=== PATIENT | female | born 1980 | race Caucasian/White ===

== ENCOUNTER 2017-06-21 02:22 | Observation (INO) | payer BC ==
[2017-06-21] VITALS (8 sets, daily range): BP systolic 116–156; BP diastolic 66–85; PULSE 62–73; RESP 16–20; TEMP 96.3–97.7; O2SAT 96–98
[~2017-06-21] VITALS: Ht 167.6 cm; Wt 96.7 kg
[~2017-06-21 02:22] MED LIST: AMOX875T PO; FLUT1SPR9; LOSA100T PO; NAPR500 PO
[2017-06-21] MEDS ORDERED: SODIUM CHLOR 0.9% 1000 ML INJ 1,000 ML IV ONE (02:36)
[2017-06-21] MEDS ORDERED: ONDANSETRON HCL 4 MG/2 ML VIAL IV PUSH ONE (02:45)
[2017-06-21] MEDS ORDERED: KETOROLAC TROMETHAMINE 30 MG/ML (IVP) VIAL IV PUSH ONE (02:45)
[2017-06-21] MEDS ORDERED: SODIUM CHLORIDE 0.9% FLUSH 10 ML FLUSH IVF PRN (02:45)
[2017-06-21] MEDS ORDERED: MORPHINE SULFATE 4 MG/ML INJ IV PUSH ONE ×2 (02:45→04:00)
[2017-06-21] MEDS ORDERED: LOSA50TA PO (02:47)
[2017-06-21] MEDS ORDERED: BYST5TAB2 PO (02:47)
[2017-06-21 03:11] LABS: BILIRUBIN, URINE NEG (NEG); BLOOD, URINE NEG (NEG); GLUCOSE,URINE NEG (NEG); KETONE, URINE NEG (NEG); NITRITE,URINE NEG (NEG); PH, URINE 5.5 (5.0-8.5); URINE COLOR YELLOW (YELLW/STRAW); URINE LEUKOCYTE ESTERASE NEG (NEG)
--- NOTE | 2017-06-21 03:13 | PD ---
HPI Chief Complaint: Flank/Kidney Pain Time Seen by Provider: 02:36 Travel History International Travel<30 days: No Contact w/Intl Traveler<30days: No Traveled to known affect area: No History of Present Illness HPI The patient is a 36-year-old female that complains of sharp left flank pain, 9/ 10 for the last 24 hours. The pain was of sudden onset. She denies any dysuria , frequency or urgency. She denies any fever. She does not have a history of kidney stones. Her only medical history is that of hypertension and she is on losartan and Bystolic for this. She denies any nausea, vomiting or diarrhea. PFSH Past Medical History Heart Rhythm Problems: Yes (HX CHEST WALL PAIN Q 2 MONTHS) Cardiovascular Problems: Yes (htn) Diminished Hearing: No Hypertension: Yes Musculoskeletal: Yes (CHEST WALL PAIN, HX FX OF RT WRIST) Respiratory: Yes (asthma) Tetanus Vaccination: Unknown Influenza Vaccination: Yes ?: Not LMP: 05-31-17 Past Surgical History Surgical History: No Previous Surgery Social History Alcohol Use: Yes (ONCE WEEKLY) Tobacco Use: No Substance Use: No Allergies-Medications (Allergen,Severity, Reaction): Coded Allergies: No Known Allergies (Verified Adverse Reaction, Unknown, 06/21/17) Reported Meds & Prescriptions Reported Meds & Active Scripts Active Reported Losartan (Losartan Potassium) 50 Mg Tab 50 Mg PO DAILY Bystolic (Nebivolol) 5 Mg Tab 5 Mg PO DAILY Review of Systems Except as stated in HPI: all other systems reviewed are Neg Physical Exam Narrative GENERAL: The patient is alert, oriented 3 in moderate to severe distress with her left flank pain. Her vital signs show normal. SKIN: Focused skin assessment warm/dry. HEAD: Atraumatic. Normocephalic. EYES: Pupils equal and round. No scleral icterus. No injection or drainage. ENT: No nasal bleeding or discharge. Mucous membranes pink and moist. NECK: Trachea midline. No JVD. CARDIOVASCULAR: Regular rate and rhythm. No murmur appreciated. RESPIRATORY: No accessory muscle use. Clear to auscultation. Breath sounds equal bilaterally. GASTROINTESTINAL: Abdomen soft, slight tenderness to direct palpation, nondistended. Hepatic and splenic margins not palpable. No guarding or rebound is present. MUSCULOSKELETAL: No obvious deformities. No clubbing. No cyanosis. No edema. NEUROLOGICAL: Awake and alert. No obvious cranial nerve deficits. Motor grossly within normal limits. Normal speech. PSYCHIATRIC: Appropriate mood and affect; insight and judgment normal. Data Data Last Documented VS Vital Signs Date Time Temp Pulse Resp B/P (MAP) Pulse Ox O2 Delivery O2 Flow Rate FiO2 06/21/17 03:17 16 06/21/17 02:24 97.5 73 130/79 (96) 97 Orders Orders Urinalysis - C+S If Indicated (06/21/17 02:32) Ed Urine Pregnancytest Poc (06/21/17 02:32) Complete Blood Count With Diff (06/21/17 02:36) Basic Metabolic Panel (Bmp) (06/21/17 02:36) Ecg Monitoring (06/21/17 02:36) Iv Access Insert/Monitor (06/21/17 02:36) Ketorolac Inj (Toradol Inj) (06/21/17 02:45) Morphine Inj (Morphine Inj) (06/21/17 02:45) Ondansetron Inj (Zofran Inj) (06/21/17 02:45) Sodium Chloride 0.9% Flush (Ns Flush) (06/21/17 02:45) Sodium Chlor 0.9% 1000 Ml Inj (Ns 1000 M (06/21/17 02:36) Sodium Chlor 0.9% 1000 Ml Inj (Ns 1000 M (06/21/17 03:30) Ct Abd/Pel W/O Iv Contrast (06/21/17 03:57) Morphine Inj (Morphine Inj) (06/21/17 04:00) Ondansetron Inj (Zofran Inj) (06/21/17 04:00) Metronidazole 500 Mg Inj (Flagyl 500 Mg (06/21/17 05:00) Ciprofloxacin 400 Mg Premix (Cipro 400 M (06/21/17 05:00) Labs Laboratory Tests Test 06/21/17 03:02 06/21/17 03:03 White Blood Count 8.4 TH/MM3 Red Blood Count 4.63 MIL/MM3 Hemoglobin 13.0 GM/DL Hematocrit 39.1 % Mean Corpuscular Volume 84.5 FL Mean Corpuscular Hemoglobin 28.2 PG Mean Corpuscular Hemoglobin Concent 33.3 % Red Cell Distribution Width 12.6 % Platelet Count 280 TH/MM3 Mean Platelet Volume 7.9 FL Neutrophils (%) (Auto) 66.3 % Lymphocytes (%) (Auto) 20.0 % Monocytes (%) (Auto) 5.0 % Eosinophils (%) (Auto) 4.9 % Basophils (%) (Auto) 3.8 % Neutrophils # (Auto) 5.6 TH/MM3 Lymphocytes # (Auto) 1.7 TH/MM3 Monocytes # (Auto) 0.4 TH/MM3 Eosinophils # (Auto) 0.4 TH/MM3 Basophils # (Auto) 0.3 TH/MM3 CBC Comment DIFF FINAL Differential Comment Blood Urea Nitrogen 15 MG/DL Creatinine 0.83 MG/DL Random Glucose 112 MG/DL Calcium Level 8.7 MG/DL Sodium Level 136 MEQ/L Potassium Level 4.1 MEQ/L Chloride Level 103 MEQ/L Carbon Dioxide Level 27.0 MEQ/L Anion Gap 6 MEQ/L Estimat Glomerular Filtration Rate 77 ML/MIN Urine Color YELLOW Urine Turbidity CLEAR Urine pH 5.5 Urine Specific [place] LESS/EQUAL 1.005 Urine Protein NEG mg/dL Urine Glucose (UA) NEG mg/dL Urine Ketones NEG mg/dL Urine Occult Blood NEG Urine Nitrite NEG Urine Bilirubin NEG Urine Urobilinogen 0.2 MG/DL Urine Leukocyte Esterase NEG Urine RBC 0-2 /hpf Urine WBC 0-2 /hpf Urine Squamous Epithelial Cells > 8 /hpf Urine Bacteria OCC /hpf Microscopic Urinalysis Comment CULT NOT INDICATED MDM Medical Decision Making Medical Screen Exam Complete: Yes Emergency Medical Condition: Yes Medical Record Reviewed: Yes Interpretation(s) The CT abdomen/pelvis without IV contrast shows scattered diverticula throughout the colon, most severe in the descending and sigmoid portions. In addition, pericolic stranding in the mid descending colon is characteristic of a non-complicated diverticulitis. The radiologist felt this likely explains the patient's current clinical symptoms. Incidentally noted is diffuse fatty infiltration of the liver. The urinalysis is normal and cultures not indicated. The CBC is normal. The basic metabolic profile is normal. Differential Diagnosis Left ureteral stone, diverticulitis, pyelonephritis, colitis, electrolyte disorder, dehydration, intractable pain Narrative Course The patient has required a total of 8 mg of morphine IV and she still has a pain of 7/10. She appears to have diverticulitis without abscess formation or perforation. She will be given Flagyl and Cipro here. She will also likely require IV pain medicines here, home p.o. medicines for pain are likely to fail. Diagnosis Primary Impression: Diverticulitis Additional Impression: Intractable abdominal pain Admitting Information Admitting Physician Requests: Admit David Che MD Jun 21, 2017 03:13
[2017-06-21 03:14] LABS: AUTOMATED NEUTROPHIL # 5.6 TH/MM3 (1.8-7.7); BASOPHIL # 0.3 TH/MM3 (0-0.2); BASOPHIL % 3.8 % (0.0-2.0); EOSINOPHIL # 0.4 TH/MM3 (0-0.4); EOSINOPHIL % 4.9 % (0.0-4.0); HEMATOCRIT 39.1 % (35.0-46.0); LYMPHOCYTE # 1.7 TH/MM3 (1.0-4.8); MEAN CELL VOLUME 84.5 FL (80.0-100.0); MEAN CORPUSCULAR HEMOGLOBIN 28.2 PG (27.0-34.0); MEAN CORPUSCULAR HGB CONC 33.3 % (32.0-36.0); MEAN PLATELET VOLUME 7.9 FL (7.0-11.0); MONOCYTE # 0.4 TH/MM3 (0-0.9); NEUT % 66.3 % (16.0-70.0); PLATELET COUNT 280 TH/MM3 (150-450); RED BLOOD COUNT 4.63 MIL/MM3 (4.00-5.30); RED CELL DISTRIBUTION WIDTH 12.6 % (11.6-17.2); WHITE BLOOD COUNT 8.4 TH/MM3 (4.0-11.0)
[2017-06-21 03:17] LABS: BACTERIA, URINE OCC /hpf; RBC, URINE 0-2 /hpf (0-3); SQUAMOUS EPITHELIAL CELL URINE > 8 /hpf (0-5); WBC, URINE 0-2 /hpf (0-5)
[2017-06-21] MEDS: SODIUM CHLOR 0.9% 1000 ML INJ 1,000 ML IV SCH ×5 (03:19→15:04)
[2017-06-21 03:23] LABS: CALCIUM 8.7 MG/DL (8.5-10.1)
[2017-06-21 03:27] LABS: CREATININE 0.83 MG/DL (0.50-1.00)
[2017-06-21] MEDS ORDERED: ONDANSETRON HCL 4 MG/2 ML VIAL IV ONE (04:00)
--- NOTE | 2017-06-21 04:51 | RADRPT ---
EXAM DATE/TIME: 06/21/2017 04:19 [place] COMPARISON: No previous studies available for comparison. INDICATIONS : Left flank pain. ORAL CONTRAST: No oral contrast ingested. RADIATION DOSE: 19.26 CTDIvol (mGy) MEDICAL HISTORY : Hypertension. SURGICAL HISTORY : None. ENCOUNTER: Initial ACUITY: 1 day PAIN SCALE: 8/10 LOCATION: Left flank TECHNIQUE: Volumetric scanning of the abdomen and pelvis was performed. Using automated exposure control and ad justment of the mA and/or kV according to patient size, radiation dose was kept as low as reasonably achievable to obtain optimal diagnostic quality images. DICOM format image data is available electro nically for review and comparison. FINDINGS: LOWER LUNGS: The visualized lower lungs are clear. LIVER: Homogeneous, but decreased density without lesion. There is no dilation of the biliary tree. No giovanny cified gallstones. SPLEEN: Normal size without lesion. PANCREAS: Within normal limits. KIDNEYS: Normal in size and shape. There is no mass, stone, or hydronephrosis. ADRENAL GLANDS: Within normal limits. VASCULAR: There is no aortic aneurysm. BOWEL/MESENTERY: Scattered diverticula throughout the colon, most prominent in the descending and sigmoid portions. Pe ricolonic stranding in the mid descending characteristic of a uncomplicated diverticulitis. ABDOMINAL WALL: Within normal limits. RETROPERITONEUM: There is no lymphadenopathy. BLADDER: No wall thickening or mass. REPRODUCTIVE: Within normal limits. INGUINAL: There is no lymphadenopathy or hernia. MUSCULOSKELETAL: Within normal limits for patient age. CONCLUSION: 1. Scattered diverticula throughout the colon, most severe in the descending and sigmoid portions. 2. In addition, pericolonic stranding in the mid descending is characteristic of a non-complicated di verticulitis. This likely explains current clinical symptoms. 3. Diffuse hepatic fatty infiltration. Taras Dowd MD on June 21, 2017 at 4:46 Board Certified Radiologist. This report was verified electronically.
[2017-06-21] MEDS ORDERED: metroNIDAZOLE 500 MG INJ 100 ML IV ONE (05:00)
[2017-06-21] MEDS ORDERED: CIPROFLOXACIN 400 MG PREMIX 200 ML IV ONE (05:00)
[2017-06-21] MEDS ORDERED: SODIUM CHLORIDE 0.9% FLUSH 10 ML FLUSH IV FLUSH PRN (05:15)
[2017-06-21] MEDS ORDERED: LACTULOSE SYRUP 20 GM/30 ML CUP PO PRN (05:15)
[2017-06-21] MEDS ORDERED: MAGNESIUM HYDROXIDE SUSP 30 ML CUP PO PRN (05:15)
[2017-06-21] MEDS ORDERED: SENNOSIDES 8.6 MG TAB PO PRN (05:15)
[2017-06-21] MEDS ORDERED: ONDANSETRON HCL 4 MG/2 ML VIAL IVP PRN (05:15)
[2017-06-21] MEDS ORDERED: ACETAMINOPHEN 325 MG TAB PO PRN (05:15)
[2017-06-21] MEDS ORDERED: MORPHINE SULFATE 2 MG/ML SYRINGE IV PUSH PRN (05:15)
[2017-06-21] MEDS ORDERED: BISACODYL 10 MG SUPP RECTAL PRN (05:15)
[2017-06-21] MEDS: ACETAMINOPHEN/HYDROcodone 325 MG/5 MG TAB PO PRN ×3 (06:49→18:51)
[2017-06-21] MEDS ORDERED: SODIUM CHLORIDE 0.9% FLUSH 10 ML FLUSH IV FLUSH SCH (09:00)
[2017-06-21] MEDS ORDERED: DOCUSATE SODIUM 50 MG/SENNA 8.6 MG TAB PO SCH (09:00)
[2017-06-21] MEDS ORDERED: CIPR-9 PO (10:49)
[2017-06-21] MEDS ORDERED: METR-1 PO (10:49)
[2017-06-21] MEDS ORDERED: HYDR-3516 PO (10:49)
--- NOTE | 2017-06-21 10:50 | HHI.DCPOC ---
Discharge Care Plan Diagnosis: (1) Intractable abdominal pain (2) Diverticulitis Your Health Problems Are: Difficulty with ADL Exercise Tolerance Goals to Promote Your Health * To prevent worsening of your condition and complications * To maintain your health at the optimal level Directions to Meet Your Goals Take your medications as prescribed Follow your dietary instruction Follow activity as directed Keep your appointments as scheduled Take your immunizations and boosters as scheduled If your symptoms worsen call your PCP, if no PCP go to Urgent Care Center or Emergency Room Smoking is Dangerous to Your Health. Avoid second hand smoke Call the 24-hour hour crisis hotline for domestic abuse at Kaleb Rey MD Jun 21, 2017 10:49
--- NOTE | 2017-06-21 10:58 | HHI.HP ---
[facility] Service [facility] Primary Care Physician Jenny New M.D. Admission Diagnosis Diverticulitis, intractable pain Diagnoses: Chief Complaint: Left flank pain Travel History International Travel<30 Days: No Contact w/Intl Traveler <30 Da: No Traveled to Known Affected Are: No History of Present Illness This is a 36-year-old female who presented to the emergency department complaining of acute severe sharp left lack pain radiating to her left back. No precipitating or alleviating factors. No UTI symptoms, fever, chills, nausea , vomiting, constipation and diarrhea. CT showed pericolic stranding in the mid descending colon. Denies constipation and recent ingestion of seeds, nuts and corn. She received IV IV Flagyl and ciprofloxacin. She was recommended to be hospitalized because of intractable pain after receiving IV Toradol and morphine sulfate. At this time, pain is improved. She has given Lortab. All other systems reviewed negative Review of Systems Except as stated in HPI: all other systems reviewed are Neg Past Family Social History Past Medical History Hypertension and chronic chest wall pain. LMP May 31, 2017 Past Surgical History Fracture of the right wrist nonsurgical management Reported Medications Last Impressions Abdomen/Pelvis CT 06/21/17 0357 Signed Impressions: Service Date/Time: Wednesday, June 21, 2017 04:19 - CONCLUSION: 1. Scattered diverticula throughout the colon, most severe in the descending and sigmoid portions. 2. In addition, pericolonic stranding in the mid descending is characteristic of a non-complicated diverticulitis. This likely explains current clinical symptoms. 3. Diffuse hepatic fatty infiltration. Taras Dowd MD Allergies: Coded Allergies: No Known Allergies (Verified Allergy, Unknown, 06/21/17) Family History Colon cancer, coronary artery disease and diabetes mellitus Social History Occasional alcohol use. Does not smoke. Physical Exam Vital Signs Vital Signs Date Time Temp Pulse Resp B/P (MAP) Pulse Ox O2 Delivery O2 Flow Rate FiO2 06/21/17 07:50 96.3 62 20 121/76 (91) 97 06/21/17 06:31 96.4 66 20 130/83 (99) 97 06/21/17 06:14 82 18 156/74 (101) 99 06/21/17 05:07 70 16 145/85 (105) 98 Room Air 06/21/17 03:17 16 06/21/17 02:24 97.5 73 18 130/79 (96) 97 Physical Exam GENERAL: This is an obese, well-developed patient, in no apparent distress. SKIN: No rashes, ecchymoses or lesions. Cool and dry. HEAD: Atraumatic. Normocephalic. No temporal or scalp tenderness. EYES: Pupils equal round and reactive. Extraocular motions intact. No scleral icterus. No injection or drainage. ENT: Nose without bleeding, purulent drainage or septal hematoma. Throat without erythema, tonsillar hypertrophy or exudate. Uvula midline. Airway patent. NECK: Trachea midline. No JVD or lymphadenopathy. Supple, nontender, no meningeal signs. CARDIOVASCULAR: Regular rate and rhythm without murmurs, gallops, or rubs. RESPIRATORY: Clear to auscultation. Breath sounds equal bilaterally. No wheezes , rales, or rhonchi. GASTROINTESTINAL: Abdomen soft, non-tender, nondistended. Left CVA tenderness. No guarding. MUSCULOSKELETAL: Extremities without clubbing, cyanosis, or edema. No joint tenderness, effusion, or edema noted. No calf tenderness. Negative Homans sign bilaterally. NEUROLOGICAL: Awake and alert. Cranial nerves II through XII intact. Motor and sensory grossly within normal limits. Five out of 5 muscle strength in all muscle groups. Normal speech. Laboratory Laboratory Tests Test 06/21/17 03:02 06/21/17 03:03 White Blood Count 8.4 Red Blood Count 4.63 Hemoglobin 13.0 Hematocrit 39.1 Mean Corpuscular Volume 84.5 Mean Corpuscular Hemoglobin 28.2 Mean Corpuscular Hemoglobin Concent 33.3 Red Cell Distribution Width 12.6 Platelet Count 280 Mean Platelet Volume 7.9 Neutrophils (%) (Auto) 66.3 Lymphocytes (%) (Auto) 20.0 Monocytes (%) (Auto) 5.0 Eosinophils (%) (Auto) 4.9 Basophils (%) (Auto) 3.8 Neutrophils # (Auto) 5.6 Lymphocytes # (Auto) 1.7 Monocytes # (Auto) 0.4 Eosinophils # (Auto) 0.4 Basophils # (Auto) 0.3 CBC Comment DIFF FINAL Differential Comment Blood Urea Nitrogen 15 Creatinine 0.83 Random Glucose 112 Calcium Level 8.7 Sodium Level 136 Potassium Level 4.1 Chloride Level 103 Carbon Dioxide Level 27.0 Anion Gap 6 Estimat Glomerular Filtration Rate 77 Urine Color YELLOW Urine Turbidity CLEAR Urine pH 5.5 Urine Specific [place] LESS/EQUAL 1.005 Urine Protein NEG Urine Glucose (UA) NEG Urine Ketones NEG Urine Occult Blood NEG Urine Nitrite NEG Urine Bilirubin NEG Urine Urobilinogen 0.2 Urine Leukocyte Esterase NEG Urine RBC 0-2 Urine WBC 0-2 Urine Squamous Epithelial Cells > 8 Urine Bacteria OCC Microscopic Urinalysis Comment CULT NOT INDICATED Result Diagram: 06/21/1730106/21/17301 Caprini VTE Risk Assessment Caprini VTE Risk Assessment: No/Low Risk (score <= 1) Caprini Risk Assessment Model Point Value = 1 Point Value = 2 Point Value = 3 Point Value = 5 Age 41-60 Minor surgery BMI > 25 kg/m2 Swollen legs Varicose veins or History of unexplained or recurrent spontaneous Oral contraceptives or hormone replacement Sepsis (< 1 month) Serious lung disease, including pneumonia (< 1 month) Abnormal pulmonary function Acute myocardial infarction Congestive heart failure (< 1 month) History of inflammatory bowel disease Medical patient at bed rest Age 61-74 Arthroscopic surgery Major open surgery (> 45 min) Laparoscopic surgery (> 45 min) Malignancy Confined to bed (> 72 hours) Immobilizing plaster cast Central venous access Age >= 75 History of VTE Family history of VTE Factor V Leiden Prothrombin [id number] Lupus anticoagulant Anticardiolipin antibodies Elevated serum homocysteine Heparin-induced thrombocytopenia Other congenital or acquired thrombophilia Stroke (< 1 month) Elective arthroplasty Hip, pelvis, or leg fracture Acute spinal cord injury (< 1 month) Prophylaxis Regimen Total Risk Factor Score Risk Level Prophylaxis Regimen 0-1 Low Early ambulation 2 Moderate Order ONE of the following: *Sequential Compression Device (SCD) *Heparin 5000 units SQ BID 3-4 Higher Order ONE of the following medications: *Heparin 5000 units SQ TID *Enoxaparin/Lovenox 40 mg SQ daily (WT < 150 kg, CrCl > 30 mL/min) *Enoxaparin/Lovenox 30 mg SQ daily (WT < 150 kg, CrCl > 10-29 mL/min) *Enoxaparin/Lovenox 30 mg SQ BID (WT < 150 kg, CrCl > 30 mL/min) AND/OR *Sequential Compression Device (SCD) 5 or more Highest Order ONE of the following medications: *Heparin 5000 units SQ TID (Preferred with Epidurals) *Enoxaparin/Lovenox 40 mg SQ daily (WT < 150 kg, CrCl > 30 mL/min) *Enoxaparin/Lovenox 30 mg SQ daily (WT < 150 kg, CrCl > 10-29 mL/min) *Enoxaparin/Lovenox 30 mg SQ BID (WT < 150 kg, CrCl > 30 mL/min) AND *Sequential Compression Device (SCD) Assessment and Plan Problem List: (1) Intractable abdominal pain ICD Code: R10.9 - Unspecified abdominal pain Status: Acute (2) Diverticulitis ICD Code: K57.92 - Diverticulitis of intestine, part unspecified, without perforation or abscess without bleeding Status: Acute Assessment and Plan This is a 36-year-old female who presented to the emergency department complaining of acute severe sharp left lack pain radiating to her left back. CT showed pericolic stranding in the mid descending colon. She has uncomplicated diverticulitis. Continue IV Zosyn and will switch to p.o. Cipro and Flagyl upon discharge. Continue pain management with Tylenol, Lortab and IV morphine. Counseled regarding narcotics. Avoid constipation, seeds, nuts and corns. High-fiber diet. Recommended outpatient colonoscopy. Possible discharge later today if tolerating diet and pain managed with p.o. medications. Hyperglycemia with glucosuria. Monitor fingersticks with sliding scale coverage. Follow-up A1c Multiple medical conditions of chest wall pain and hypertension. Stable continue outpatient medications as appropriate. Monitor BP. DVT prophylaxis with SCD and early ambulation Code Status Discharge patient to home Condition on discharge: Improved Regular Diet as tolerated Ad Yesenia activity no driving Rx written: Lortab, Cipro and Flagyl Follow-up with primary care physician. Advised not to work for 2 days and obtain clearance from PCP Kaleb Rey MD Jun 21, 2017 10:58
[2017-06-21] MEDS: PIPERACIL-TAZO 4.5 GM PREMIX 100 ML IV SCH ×2 (12:32→18:43)
== END 2017-06-21 19:52 | disposition home or self-care (01) ==
LOC: PHED 02:22 → PHEDA 05:10 → PH3A 06:19
PROVIDERS: ADMIT Hospitalist; ATTEND Hospitalist
DX: R10.9 Unspecified abdominal pain (principal); K57.92 Diverticulitis of intestine, part unspecified, without perforation or abscess without bleeding; R07.89 Other chest pain; I10 Essential (primary) hypertension; R73.9 Hyperglycemia, unspecified; R81 Glycosuria; K76.0 Fatty (change of) liver, not elsewhere classified; Z79.899 Other long term (current) drug therapy
CPT/HCPCS: 74176; 80048; 81001; 84703; 85025; 96361; 96365; 96366; 96375; 96376; 99285; G0378; J0744; J1885; J2270; J2405; J2543; J7030